=== PATIENT | female | born 1995 | race Caucasian/White ===

== ENCOUNTER 2017-09-25 19:29 | Emergency (ER) | payer OTHER ==
[2017-09-25 19:46] VITALS: BP 108/59; PULSE 84; RESP 16; TEMP 97.5; O2SAT 98
--- NOTE | 2017-09-25 20:10 | ED PDOC ---
HPI: CCC, URI, Sore Throat Time Seen by Provider: 09/25/17 19:51 Chief Complaint (Nursing): Cough, Cold, Congestion Chief Complaint (Provider): Cough History Per: Patient History/Exam Limitations: no limitations Have you had recent travel within the past 21 days to any of the following countries: [place], [place], [place] or [place]?: No Onset/Duration Of Symptoms: Days (1) Current Symptoms Are (Timing): Still Present Associated Symptoms: Cough, Myalgias. denies: Fever, Sore Throat Severity: Mild Additional History Per: Patient Additional Complaint(s): 22 y/o female with PMHx Asthma complaining of cough and body aches x1 day. She denies any fever, and has tried OTC cough medication with minimal relief. Patient is with LMP in July 2017. Past Medical History Vital Signs: Last Vital Signs Temp 97.5 F L 09/25/17 19:43 Pulse 84 09/25/17 19:43 Resp 16 09/25/17 19:43 BP 108/59 L 09/25/17 19:43 Pulse Ox 98 09/25/17 20:11 - Medical History PMH: Asthma - Surgical History Surgical History: No Surg Hx - Family History Family History: States: Unknown Family Hx - Social History Ex-Smoker (has not smoked in the last 12 months): No - Allergies Allergies/Adverse Reactions: Allergies Allergy/AdvReac Type Severity Reaction Status Date / Time tree nut Allergy ANAPHYLAXIS Verified 09/25/17 19:43 Review of Systems Constitutional: Negative for: Fever ENT: Negative for: Throat Pain Respiratory: Positive for: Cough Musculoskeletal: Positive for: Other (generalized myalgias) Physical Exam - Reviewed Nursing Documentation Reviewed: Yes Vital Signs Reviewed: Yes - Physical Exam Appears: Positive for: Well, Non-toxic Skin: Positive for: Normal Color, Warm, Dry. Negative for: Rash Neck: Positive for: Normal, Supple Cardiovascular/Chest: Positive for: Regular Rate, Rhythm Respiratory: Positive for: Normal Breath Sounds. Negative for: Accessory Muscle Use, Crackles, Rales, Rhonchi, Stridor, Wheezing, Respiratory Distress Extremity: Positive for: Normal ROM Neurologic/Psych: Positive for: Alert, Oriented - ECG O2 Sat by Pulse Oximetry: 98 Medical Decision Making Medical Decision Making: Time: 20:09 Initial impression: Cough Initial plan: * Duo Neb * Flu swab ~ Scribe Attestation: Documented by~Zandra Neri, acting as a scribe for SHEYLA Zamora. Provider Scribe Attestation: All medical record entries made by the Scribe were at my direction and personally dictated by me. I have reviewed the chart and agree that the record accurately reflects my personal performance of the history, physical exam, medical decision making, and the department course for this patient. I have also personally directed, reviewed, and agree with the discharge instructions and disposition. Disposition - Clinical Impression Clinical Impression: Cough - Patient ED Disposition Is Patient to be Admitted: No Counseled Patient/Family Regarding: Diagnosis, Need For Followup - Disposition Disposition: Routine/Home Disposition Time: 21:16 Condition: GOOD Instructions: Upper Respiratory Infection (ED) Forms: [employer] (Greek)
[2017-09-25] MEDS ORDERED: Albuterol-Ipratrop 3 mg / 0.5 (3 ml) UD ONE (20:27)
[2017-09-25] MEDS: Albuterol 0.083% Inhal Sol (2.5 mg/3 mL) UD INH STA (20:31)
== END 2017-09-25 21:29 | disposition home or self-care (01) ==
LOC: H.ER 19:29
DX: J45.909 Unspecified asthma, uncomplicated (principal); Z33.1 Pregnant state, incidental

== ENCOUNTER 2017-11-30 06:14 | Emergency (ER) | payer OTHER ==
[2017-11-30 06:29] VITALS: BMI 25.6
[2017-11-30 06:31] VITALS: TEMP 98.8
[2017-11-30] MEDS ORDERED: Albuterol-Ipratrop 3 mg / 0.5 (3 ml) UD INH STA ×2 (06:45)
--- NOTE | 2017-11-30 06:48 | ED PDOC ---
HPI: SOB/CHF/COPD Time Seen by Provider: 11/30/17 06:33 Chief Complaint (Nursing): Respiratory Distress History Per: Patient History/Exam Limitations: no limitations Onset/Duration Of Symptoms: Hrs Current Symptoms Are (Timing): Better Current Respiratory Medications: Albuterol Associated Symptoms: denies: Fever, Chills, Chest Pain, Bloody Cough, Productive Cough Additional Complaint(s): Hx of asthma (no intubations) p/w asthma exacerbation, states she woke up from a nap at 10PM and wasn't able to breathe, states she used her nebulizer >10 times without significant relief but reports feeling better upon arrival to ER compared to earlier. Unsure of trigger, states she's allergic to tree nuts but had no recent exposure. No cough, fevers, chills, or recent illnesses. Past Medical History Reviewed: Historical Data, Nursing Documentation, Vital Signs Vital Signs: Last Vital Signs Temp 98.8 F 11/30/17 06:29 Pulse 96 H 11/30/17 06:29 Resp 22 11/30/17 06:44 BP 110/69 11/30/17 06:29 Pulse Ox 96 11/30/17 06:29 - Medical History PMH: Asthma - Family History Family History: States: Unknown Family Hx - Immunization History Hx Tetanus Toxoid Vaccination: No - Home Medications Home Medications: Ambulatory Orders Medication Instructions Recorded Albuterol HFA [Ventolin HFA 90 1 puff IH BID PRN #1 unit 09/25/17 mcg/actuation (8 g)] - Allergies Allergies/Adverse Reactions: Allergies Allergy/AdvReac Type Severity Reaction Status Date / Time tree nut Allergy ANAPHYLAXIS Verified 11/30/17 06:29 Wells Criteria for PE - Wells Criteria for Pulmonary Embolism Clinical Signs and Symptoms of DVT: No P.E is #1 Diagnosis, or Equally Likely: No Heart Rate >100: No Immobilization at least 3 days;Surgery previous 4 weeks: No Previous, objectively diagnosed PE or DVT: No Hemoptysis: No Malignancy w/treatment within 6 months, or palliative: No Total Score: 0 Review of Systems ROS Statement: Except As Marked, All Systems Reviewed And Found Negative Respiratory: Positive for: Shortness of Breath, Wheezing Physical Exam - Reviewed Nursing Documentation Reviewed: Yes Vital Signs Reviewed: Yes - Physical Exam Appears: Positive for: Well, Non-toxic, No Acute Distress Head Exam: Positive for: ATRAUMATIC, NORMAL INSPECTION, NORMOCEPHALIC Skin: Positive for: Normal Color, Warm, DRY Eye Exam: Positive for: EOMI, Normal appearance, PERRL ENT: Positive for: Normal ENT Inspection Neck: Positive for: Normal, Painless ROM Cardiovascular/Chest: Positive for: Regular Rate, Rhythm, Chest Non Tender Respiratory: Positive for: Wheezing (mild, R>L), Other (Speaking clearly in full sentences). Negative for: Stridor, Respiratory Distress Gastrointestinal/Abdominal: Positive for: Normal Exam, Bowel Sounds, Soft Back: Positive for: Normal Inspection Extremity: Positive for: Normal ROM Neurologic/Psych: Positive for: Alert, Oriented - ECG ECG Rhythm: Positive for: Normal QRS, Sinus Rhythm O2 Sat by Pulse Oximetry: 96 Pulse Ox Interpretation: Normal Medical Decision Making Medical Decision MakinAM Hx of asthma p/w asthma exacerbation, mild-moderate. Patient has normal vitals , well appearing, will give nebs, steroids. Will endorse to Dr. Crisostomo pending re-eval after medications. Disposition - Clinical Impression Clinical Impression: Asthma - Patient ED Disposition Is Patient to be Admitted: Transfer of Care - Disposition Disposition: Transfer of Care Disposition Time: 07:00 Condition: STABLE Patient Signed Over To: Darrick Crisostomo Handoff Comments: pending re-eval after medications
--- NOTE | 2017-11-30 07:15 | ED PDOC ---
- ECG O2 Sat by Pulse Oximetry: 96 Medical Decision Making Medical Decision Making: Time: 0700 --Patient was endorsed to provider by Dr. Aaron Glaser. Pending re-evaluation. Scribe Attestation: Documented by Erika Long, acting as a scribe for Darrick Crisostomo MD. Provider Scribe Attestation: All medical record entries made by the Scribe were at my direction and personally dictated by me. I have reviewed the chart and agree that the record accurately reflects my personal performance of the history, physical exam, medical decision making, and the department course for this patient. I have also personally directed, reviewed, and agree with the discharge instructions and disposition. Disposition - Clinical Impression Clinical Impression: Asthma - POA Present On Arrival: None - Disposition Referrals: [facility] [Outside] Disposition: Routine/Home Disposition Time: 07:39 Condition: FAIR Prescriptions: Albuterol HFA [Ventolin HFA 90 mcg/actuation (8 g)] 2 puff IH Q4H #1 puff predniSONE [predniSONE Tab] 10 mg PO TID #15 tab Instructions: Asthma, Adult (DC) Forms: [employer] (Frisian)
[2017-11-30 07:52] VITALS: BP 118/70; PULSE 87; RESP 18; O2SAT 98
== END 2017-11-30 07:49 | disposition home or self-care (01) ==
LOC: H.ER 06:14
DX: J45.909 Unspecified asthma, uncomplicated (principal)

== ENCOUNTER 2018-05-26 10:04 | Inpatient (IN) | payer BC, OTHER ==
[2018-05-26 10:05] VITALS: BMI 25.6
[2018-05-26 10:09] VITALS: O2SAT 98
[2018-05-26] MEDS ORDERED: Lidocaine 1% w Epi 1:100,000 Inj IJ STA (10:15)
[2018-05-26] MEDS ORDERED: Lidocaine 1% w Epi 1:100,000 Inj ONE (10:21)
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
[2018-05-26] MEDS ORDERED: Tdap Vaccine 0.5 ml Vial (10-64 yrs) IM ONE ×2 (12:17→12:43)
[2018-05-26 12:37] LABS: HEMOGLOBIN 13.7 g/dL (12.0-16.0); MEAN CELL VOLUME 95.9 fl (81.0-99.0); MEAN CORPUSCULAR HEMOGLOBIN 32.6 pg (27.0-31.0); RBC 4.2 Mil/uL (3.80-5.20); RED CELL DISTRIBUTION WIDTH 14.1 % (11.5-14.5); WHITE BLOOD COUNT 5.9 K/uL (4.8-10.8)
[2018-05-26 12:43] LABS: SQUAMOUS EPITHIAL 1 /hpf (0-5); URINE BACTERIA RARE (<OCC); URINE BILIRUBIN NEGATIVE (NEGATIVE); URINE BLOOD SMALL (NEGATIVE); URINE CLARITY SLIGHTY-CLOUDY (Clear); URINE COLOR YELLOW (YELLOW); URINE GLUCOSE (UA) NEG (Normal); URINE LEUKOCYTE ESTERASE NEG Leu/uL (Negative); URINE PROTEIN NEGATIVE (NEGATIVE); URINE UROBILINOGEN 0.2-1.0 mg/dL (0.2-1.0)
[2018-05-26 12:44] LABS: ALB/GLOB RATIO 1.5 (1.0-2.1); ALBUMIN 4.6 g/dL (3.5-5.0); ALT/SGPT 109 U/L (9-52); AST/SGOT 101 U/L (14-36); BLOOD UREA NITROGEN 8 mg/dl (7-17); CALCIUM 9.6 mg/dL (8.4-10.2); GFR NON-AFRICAN AMERICAN > 60
[2018-05-26 13:56] LABS: BARBITURATES, UR NEGATIVE (NEGATIVE); BENZODIAZEPINES, UR NEGATIVE (NEGATIVE); OPIATES, UR NEGATIVE (NEGATIVE); PHENCYCLIDINE, UR NEGATIVE (NEGATIVE)
[2018-05-26] MEDS ORDERED: Magnesium Hydroxide Susp 30 ml UD PO PRN (15:34)
[2018-05-26] MEDS ORDERED: Alum-Mag Hydrox-Simethicone Susp (30 mL) PO PRN (15:34)
[2018-05-26] MEDS ORDERED: DiphenhydrAMINE 50 mg/ml Inj IM PRN (15:34)
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
[2018-05-26] MEDS ORDERED: Albuterol HFA 90 mcg/actuation (8 g) IH PRN (17:23)
--- NOTE | 2018-05-27 09:13 | CARD ---
APPROVED REPORT Date of service: 05/27/2018 EKG Measurement Heart [id number] <Conclusion> Normal sinus rhythm Normal ECG
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
[2018-05-27] MEDS ORDERED: Fluconazole 150 MG TAB PO ONE (16:00)
--- NOTE | 2018-05-27 18:44 | CP.PCM.CON ---
History of Present Illness - History of Present Illness History of Present Illness: This is a 22 year old female with a past medical history of asthma, who is admitted to the psychiatric unit after an episode of self harm and with history of depression, that hospitalist was called for consultation. She has a laceration of the left forearm which was apparently self inflicted. It was sutured in the ED. She currently denies any pain, edema, or discharge from the site. At home she takes Ventolin inhaler which she uses once or twice a week, usually before exercising. She denies any other medical problems. Denies cp, sob , headache, n/v/d. Review of Systems - Hematologic/Lymphatic Additional comments: A 12 point review of systems was conducted and found to be negative other than what was mentioned in the HPI. Past Patient History - Infectious Disease Hx of Infectious Diseases: None - Past Medical History & Family History Past Family History: Reviewed and not pertinent - Past Social History Smoking Status: Never Smoked Alcohol: > 2 Drinks/Day Drugs: Cocaine - CARDIAC Hx Cardiac Disorders: No - PULMONARY Hx Asthma: Yes - NEUROLOGICAL Hx Neurological Disorder: No - HEENT Hx HEENT Problems: No - RENAL Hx Chronic Kidney Disease: No - ENDOCRINE/METABOLIC Hx Endocrine Disorders: No - HEMATOLOGICAL/ONCOLOGICAL Hx Blood Disorders: No - INTEGUMENTARY Hx Dermatological Problems: No - MUSCULOSKELETAL/RHEUMATOLOGICAL Hx Musculoskeletal Disorders: No - GASTROINTESTINAL Hx Gastrointestinal Disorders: No - GENITOURINARY/GYNECOLOGICAL Hx Genitourinary Disorders: No - PSYCHIATRIC Hx Substance Use: Yes - SURGICAL HISTORY Hx Surgeries: Yes - ANESTHESIA Hx Anesthesia: No Hx Anesthesia Reactions: No Hx Malignant Hyperthermia: No Meds Allergies/Adverse Reactions: Allergies Allergy/AdvReac Type Severity Reaction Status Date / Time tree nut Allergy ANAPHYLAXIS Verified 05/26/18 10:11 - Medications Medications: Current Medications Al Hydrox/Mg Hydrox/Simethicone (Maalox Plus 30 Ml) 30 ml PO Q4 PRN PRN Reason: Dyspepsia Albuterol (Ventolin Hfa 90 Mcg/Actuation (8 G)) 1 puff IH BID PRN PRN Reason: Wheezing Diphenhydramine HCl (Benadryl) 50 mg IM Q6 PRN PRN Reason: Extrapyramidal S/S Unable PO Diphenhydramine HCl (Benadryl) 50 mg PO Q6 PRN PRN Reason: Extrapyramidal Symptoms Escitalopram Oxalate (Lexapro) 10 mg PO DAILY ALEX Haloperidol (Haldol) 5 mg PO Q4 PRN PRN Reason: Agitation Haloperidol Lactate (Haldol) 5 mg IM Q4 PRN PRN Reason: Agitation, Unable to Take PO Hydroxyzine Pamoate (Vistaril) 25 mg PO TID PRN PRN Reason: Anxiety Ibuprofen (Motrin Tab) 600 mg PO Q6 PRN PRN Reason: Pain, moderate (4-7) Lorazepam (Ativan) 0.5 mg PO TID PRN PRN Reason: Anxiety Magnesium Hydroxide (Milk Of Magnesia) 30 ml PO HS PRN PRN Reason: Constipation Physical Exam - Additional Findings Additional findings: Physical exam: Constitutional- cooperative, awake, alert Head- NCAT, PERRL Eye- PERRL, EOMI ENT- normal exam, MMM. Neck- normal inspection, supple, no JVD Respiratory- CTAB, no wheezes rales rhonchi Cardiovascular- RRR, +S1, +S2 no MRG GI/Abdominal- normal bowel sounds, soft, no mass, no hsm Skin- warm, dry Extremities Exam-L ant forearm laceration, approximately 7cm, no evident erythema or drainage. Sutures intact, dressing c/d/i. normal capillary refill, normal inspection Neurological Exam- alert, awake, oriented Psych- normal mood, normal affect Results - Vital Signs Recent Vital Signs: Last Vital Signs Temp 97.9 F 05/27/18 09:06 Pulse 71 05/27/18 09:06 Resp 19 05/27/18 09:06 BP 112/79 05/27/18 09:06 Pulse Ox 98 05/26/18 14:23 - Labs Result Diagrams: 05/26/18 12:24 05/26/18 12:24 Assessment & Plan - Assessment and Plan (Free Text) Plan: This is a 22 year old female with a past medical history of asthma, who is admitted to the psychiatric unit after an episode of self harm and with history of depression, that hospitalist was called for consultation. She has a laceration of the left forearm which was apparently self inflicted. It was sutured in the ED. She currently denies any pain, edema, or discharge from the site. At home she takes Ventolin inhaler which she uses once or twice a week, usually before exercising. 1) Anterior forearm laceration - no evidence of infection at this time, sutures in place - Continue daily dressing changes - Had tetanus shot - Pt to have sutures removed 7-10 days from when they were placed 2) Mild intermittent asthma - Ventolin inhaler PRN 3) Depression - Management as per psych
[2018-05-28 09:32] VITALS: RESP 18
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
[2018-05-29 09:24] VITALS: BP 120/57; PULSE 78; TEMP 97.5
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
== END 2018-05-29 15:32 | disposition home or self-care (01) | DRG 895 ==
LOC: H.ER 10:04 → H.ERHOLD 13:27 → H.PSYCH 14:35
PROVIDERS: ADMIT Psychiatry & Neurology Psychiatry; ATTEND Psychiatry & Neurology Psychiatry
PROC: HZ52ZZZ Individual Psychotherapy for Substance Abuse Treatment, Cognitive-Behavioral (ICD-10-PCS; principal; 2018-05-26)
PROC: HZ59ZZZ Individual Psychotherapy for Substance Abuse Treatment, Supportive (ICD-10-PCS; 2018-05-26)
PROC: HZ57ZZZ Individual Psychotherapy for Substance Abuse Treatment, Motivational Enhancement (ICD-10-PCS; 2018-05-26)
PROC: 3E0334Z Introduction of Serum, Toxoid and Vaccine into Peripheral Vein, Percutaneous Approach (ICD-10-PCS; 2018-05-26)
PROC: 0HQEXZZ Repair Left Lower Arm Skin, External Approach (ICD-10-PCS; 2018-05-26)
DX: F10.94 Alcohol use, unspecified with alcohol-induced mood disorder (principal); R45.851 Suicidal ideations; F14.90 Cocaine use, unspecified, uncomplicated; Y90.6 Blood alcohol level of 120-199 mg/100 ml; F60.3 Borderline personality disorder; F32.9 Major depressive disorder, single episode, unspecified; Z23 Encounter for immunization; J45.909 Unspecified asthma, uncomplicated; S51.812A Laceration without foreign body of left forearm, initial encounter; Z91.5 Personal history of self-harm; J45.20 Mild intermittent asthma, uncomplicated; X78.1XXA Intentional self-harm by knife, initial encounter

== ENCOUNTER 2018-06-16 10:29 | Emergency (ER) | payer BC ==
[2018-06-16 10:39] VITALS: BP 123/95; RESP 18; TEMP 98; BMI 23.3
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
[2018-06-16 12:36] VITALS: PULSE 103; O2SAT 98
== END 2018-06-16 12:37 | disposition home or self-care (01) ==
LOC: H.ER 10:29
DX: F10.94 Alcohol use, unspecified with alcohol-induced mood disorder (principal)